=== PATIENT | male | born 1995 | race Caucasian/White ===

== ENCOUNTER → 2022-07-24 | Emergency (ER) | payer OTHER ==
[~2022-07-24] VITALS: Ht 180.3 cm; Wt 68.2 kg
[~2022-07-24] MED LIST: LIDOCAINE 1%/EPI 1:200,000/PF 30 ML VIAL SQ ONE; TRANEXAMIC ACID 1,000 MG/10 ML VIAL TP ONE
[2022-07-25] VITALS: BP 124/85
== END | disposition home or self-care (01) ==
LOC: EMS 22:10
DX: K06.8 Other specified disorders of gingiva and edentulous alveolar ridge (principal); F17.210 Nicotine dependence, cigarettes, uncomplicated
CPT/HCPCS: 99283; J3490 ×2